=== PATIENT | male | born 1995 | race Caucasian/White ===

== ENCOUNTER 2020-01-04 15:19 | Outpatient (CLI) | payer OTHER, SELFPAY ==
--- NOTE | ~2020-01-04 | MR_ITS ---
EXAMINATION: MR IAC wo/w con EXAM DATE: 01/04/2020 17:42 INDICATION: H91.8X1 Other specified hearing loss, right ear TECHNIQUE: Multi-sequential, multiplanar MR images of the brain, brainstem, internal auditory canals were obtained without contrast. Whole brain sagittal T1, axial diffusion, gradient echo (T2*), T1, T 2, FLAIR sequences obtained. High resolution coronal 3-D FIESTA, coronal T1 FSE, axial T1 FSPGR of t he internal auditory canals. Patient was then injected with 15 cc Multihance contrast intravenously. Postcontrast axial and coronal T1 weighted whole brain, axial and coronal high resolution T1 IAC seq uences obtained. There is no prior study for comparison. FINDINGS: No evidence of mastoid or middle ear opacification. The 7th/8th cranial nerve complexes a re symmetric, normal in course and caliber. No cerebellopontine angle masses. Posterior fossa unrem arkable. There are no areas of restricted diffusion to suggest acute infarction. There is no acute hemorrhage seen on the T2*, a hemosiderin sensitive sequence. No intraparenchymal brain mass. The ventricles a re normal in size. There are no extra-axial collections. Flow voids are seen in the cerebral arteri es on the T2-weighted sequences consistent with their expected patency. The orbits are unremarkable. Soft tissue is unremarkable. There are no areas of abnormal enhancement on the postcontrast image s. There is nearly opacified left sphenoid sinus from mucoperiosteal thickening. Right maxillary sinu s moderate-sized mucous retention cyst. IMPRESSION: 1. Mucoperiosteal thickening. 2. Unremarkable cerebellopontine angles, brain. Reviewed, dictated and finalized at location A.
[2020-01-04 16:49] LABS: Estimated Glomerular Filt Rate > 60
== END 2020-01-04 15:20 | disposition home or self-care (01) ==
PROVIDERS: Visit Provider Otolaryngology
DX: H91.8X1 Other specified hearing loss, right ear (principal)
CPT/HCPCS: 70553; A9577

== ENCOUNTER 2020-04-07 20:58 | Emergency (ER) | payer OTHER, SELFPAY ==
--- NOTE | ~2020-04-07 | CT_ITS ---
EXAMINATION: CTA chest abdomen pelvis DATE: 04/07/2020 23:34 INDICATION: Stabbing and migrating chest pain TECHNIQUE: Computed tomographic angiography (CTA) of the chest, abdomen, and pelvis was performed wit h 100 mL Omnipque-350 intravenous contrast. Maximum intensity projection 3D-reconstructions of the ao rta and other arteries were constructed by the technologist on a separate workstation. The dose-lengt h product (DLP) was 578.88 mGy-cm. Automated exposure control and iterative reconstruction technique were employed. COMPARISON: None. FINDINGS: CHEST CTA: The thoracic aorta is normal without aneurysm or dissection. Although not timed for evaluation of the pulmonary arteries, no pulmonary embolism is identified. No pathologically enlarged thoracic lymph n odes are identified. The heart size is normal. The lungs are free of acute opacities. There is no ple ural effusion or pneumothorax. ABDOMEN AND PELVIS CTA: The abdominal aorta is normal without evidence of aneurysm or dissection. The celiac axis, superior m esenteric artery, and inferior mesenteric artery are normal. There are three right the and one left r enal arteries. The pelvic vessels are unremarkable. The liver, spleen, pancreas, gallbladder, and adr enal glands are normal. The kidneys are unremarkable. No pathologically enlarged abdominal or pelvic lymph nodes are identified. There is no free intraperitoneal gas or evidence of bowel obstruction. IMPRESSION: 1. Normal aorta without aneurysm or dissection. No CT correlate for the patient's symptoms. Reviewed, dictated and finalized at location A. AP MAN IMPRESSION: 1. Normal aorta without aneurysm or dissection. No CT correlate for the patient 's symptoms.
--- NOTE | ~2020-04-07 | XR_ITS ---
EXAMINATION: XR chest 2V DATE: 04/07/2020 21:30 INDICATION: Midsternal and right-sided chest pain TECHNIQUE: PA and lateral views of the chest are obtained. COMPARISON: 01/06/2019 FINDINGS: The lungs are free of acute opacities. There is no pleural effusion or pneumothorax. The ca rdiomediastinal silhouette is normal. The visualized bones and soft tissues are unremarkable. IMPRESSION: 1. No acute cardiopulmonary abnormality. Reviewed, dictated and finalized at location A. DER & CEO
--- NOTE | 2020-04-07 21:02 | ECG_ITS ---
Measurements Intervals [place] Rate: 152 P: 69 W[place]: 116 QRS: 72 QRSD: 82 T: 62 QT: 252 QTc: 401 Interpretive Statements SINUS TACHYCARDIA NONSPECIFIC T-WAVE ABNORMALITY- INFERIOR LEADS ABNORMAL ECG Electronically Signed On 04-08-2020 7:10:59 COMPLEX MANAGER by Jose Kaiser D.O.
[2020-04-07 21:07] VITALS: BP 134/86; PULSE 150; RESP 18; TEMP 36.7; O2SAT 100
--- NOTE | 2020-04-07 21:41 | ED.CHESTPAIN ---
HPI - Chest Pain General Chief Complaint: Chest Pain Stated Complaint: CHEST PAIN X1HR Time Seen by Provider: 04/07/20 21:15 Source: patient Mode of arrival: ambulatory Limitations: no limitations History of Present Illness HPI narrative: This patient is a 24 year old male who presents for evaluation of chest pain. He states starting 1 hours ago he was laying down when he developed sharp stabbing pain . His pain was lacerated right sternal and they cross over to left. He states pain is constant. HE denies associated cough, shortness of breath, fever or chills. HE denies vomiting or diarrhea. He reports chronic left knee pain that he is being evaluated for. He reports history of POTS but he states he was cleared from the diagnosis 1 year ago. He states he does not take any medications. Related Data Home Medications Medication Instructions Recorded Confirmed buspirone 10 mg tablet 10 mg PO BID 12/14/19 escitalopram oxalate 10 mg tablet 10 mg PO DAILY 12/14/19 escitalopram oxalate 5 mg tablet 5 mg PO DAILY 12/14/19 lamotrigine 25 mg tablet 25 mg PO DAILY tablet 12/14/19 propranolol 10 mg tablet 10 mg PO Q12H 12/14/19 Allergies Allergy/AdvReac Type Severity Reaction Status Date / Time metoprolol Allergy Unknown Unknown Verified 12/21/19 09:28 No Known Allergies Allergy Uncoded 12/21/19 09:28 Review of Systems Review of Systems: Narrative: CONSTITUTIONAL: Denies fever, chills, or sweats. EYES: Denies visual changes, redness, or discharge. ENT: Denies rhinorrhea, congestion, sore throat, or otalgia. CARDIOVASCULAR: , or edema. RESPIRATORY: Denies cough or dyspnea. GASTROINTESTINAL: Denies abdominal pain, nausea, vomiting, or diarrhea. GENITOURINARY: Denies dysuria or hematuria. SKIN: Denies rash or itching. MUSCULOSKELETAL: Denies back pain, joint pain, or myalgia. NEUROLOGIC: Denies headache, numbness, or weakness. PSYCHIATRIC: Denies anxiety or depression. All systems reviewed & are unremarkable except as noted in HPI and below Constitutional: Constitutional: Denies body ache(s) and Denies chills PMFSH Past Medical History Medical History (Updated 04/08/20 @ 01:54 by Emma Hatfield MD) Allergic rhinitis POTS (postural orthostatic tachycardia syndrome) Surgical History Surgical History (Updated 04/08/20 @ 01:49 by Emma Hatfield MD) No pertinent past surgical history Social History Social History (System 12/21/19 @ 09:28 by Thi Ibrahim) Smoking status: Never smoker Gender identity (if verbalized by the patient): Male Exam Narrative: Exam Narrative: GENERAL: Well-appearing, well-nourished, and in no acute distress. HEAD: Normocephalic, atraumatic EYES: PERRLA and EOMI, conjunctiva clear without discharge THROAT:Mucous membranes moist, Oropharynx normal without erythema, exudate, peritonsillar swelling or fluctuance NECK: Supple, without lymphadenopathy or mass RESPIRATORY: No respiratory distress, Airway patent, Respirations non-labored, Clear to auscultation without rales, rhonchi or wheeze HEART: tachycardic rate and regular rhythm. No murmur heard. Normal peripheral pulses. ABDOMEN: Soft, nontender, nondistended, normal active bowel sounds. No masses. No rebound or guarding, No organomegaly. EXTREMITIES: No edema, normal strength with full range of motion. SKIN: Warm, dry, normal color without rash NEURO: Alert and oriented x3. CN 2-12 grossly intact. No focal deficits. PSYCH: Normal mood and affect. Course Reevaluation(s) Reevaluation #1: PAtient presented with atypical chest pain. Her reports his pain has improved. His heart rate has decreased to 90 with BP 109/67 . I discussed labs are unremarkable. He will follow up with PCP regarding his tachycardia. Date: 04/08/20 Time: 01:50 Vital Signs Vital signs: Vital Signs Temperature 98.1 F 04/07/20 21:07 Pulse Rate 150 H 04/07/20 21:07 Respiratory Rate 18 04/07/20 21:07 Blood Pressure 134/8
[2020-04-07] MEDS: ASPIRIN 81 MG CHEWABLE TABLET 324 MG PO (21:42)
[2020-04-07 21:55] LABS: Basophils Percent Auto 0.3 % (0.2-1.2); Eosinophils Absolute Auto 0.1 K/mm3 (0-0.3); Eosinophils Percent Auto 0.9 % (0-4.4); Hematocrit 47.7 % (42.0-52.0); Hemoglobin 16.8 g/dL (14.0-18.0); Immature Granulocyte Absolute 0.02 K/mm3 (0.00-0.031); Immature Granulocyte Percent A 0.2 % (0-0.5); Lymphocytes Absolute Auto 2.32 K/mm3 (0.9-3.2); Lymphocytes Percent Auto 25.6 % (18.3-44.2); Mean Corpuscular HGB Conc 35.2 g/dl (32-36); Mean Corpuscular Hemoglobin 31.3 pg (26-34); Mean Corpuscular Volume 88.8 fl (80-100); Mean Platelet Volume 9.8 fl (7.4-10.4); Monocytes Absolute Auto 0.7 K/mm3 (0.1-0.6); Monocytes Percent Auto 7.9 % (2.6-8.5); Neutrophils Absolute Auto 5.9 K/mm3 (1.3-6.7); Neutrophils Percent Auto 65.1 % (45.5-73.1); Platelet Count Result 247 k/mm3 (150-375); Red Blood Count 5.37 M/mm3 (4.6-6.20); Red Cell Distribution Width 11.9 % (11.5-14.5); White Blood Count 9.1 K/mm3 (4.5-10.0)
[2020-04-07 22:12] LABS: Anion Gap 11 mmol/L (8-16); Blood Urea Nitrogen 15 mg/dL (9-20); Calcium 9.1 mg/dL (8.4-10.2); Carbon Dioxide 25 mmol/L (22-30); Chloride 105 mmol/L (98-107); Estimated CRCL calculation 111 ml/min; Estimated Glomerular Filt Rate > 60; Glucose 107 mg/dL (75-110); Potassium 3.6 mmol/L (3.4-5.0); Sodium 141 mmol/L (137-145)
[2020-04-07 22:23] LABS: Troponin I < 0.012 ng/mL (0.000-0.034)
[2020-04-07 22:45] LABS: INR 0.9; Prothrombin Time 12.8 Seconds (11.1-14.7)
[2020-04-07 22:46] LABS: Partial Thromboplastin Time 26.5 SECONDS (22.3-36.8)
[2020-04-07 22:52] LABS: D Dimer 0.27 ug/mL (<0.48)
[2020-04-07] MEDS: SODIUM CHLORIDE 0.9% IV 1,000 ML 999 ML IV CONT (22:53)
--- NOTE | 2020-04-07 22:59 | ECG_ITS ---
Measurements Intervals [place] Rate: 109 P: 64 DE: 152 QRS: 55 QRSD: 77 T: 10 QT: 304 QTc: 409 Interpretive Statements SINUS TACHYCARDIA NONSPECIFIC T-WAVE ABNORMALITY- INFERIOR LEADS ABNORMAL ECG Electronically Signed On 04-08-2020 7:11:25 CD REACTOR OPERATOR by Jose Kaiser D.O.
--- NOTE | 2020-04-07 23:06 | PC.NURSE ---
2300- Pt c/o severe pain to left upper chest 10/25. Described as throbbing. Does not radiate. Dr. Hatfield made aware. Order received for repeat EKG. VS 122/82 HR 110 Resp 16 SPO2 97.
--- NOTE | 2020-04-07 23:16 | PC.NURSE ---
1391- Report given to Carlos A WHITEHEAD
[2020-04-07 23:17] VITALS: PULSE 127
--- NOTE | 2020-04-07 23:24 | PC.NURSE ---
Report received from CHARLEY Mejia. Pt to CT via stretcher.
[2020-04-07 23:37] VITALS: BP 137/92; PULSE 115; O2SAT 100
[2020-04-07 23:46] VITALS: BP 125/87; PULSE 106; O2SAT 100
[2020-04-08] VITALS (9 sets, daily range): BP systolic 109–126; BP diastolic 70–86; PULSE 87–114; RESP 12; O2SAT 98–100
[2020-04-08] MEDS: LACTATED RINGERS 1,000 ML 999 ML IV CONT (00:25)
[2020-04-08] MEDS: KETOROLAC 30 MG/ML VIAL (*BKC) IV PUSH (00:25)
[2020-04-08 00:43] LABS: Troponin I < 0.012 ng/mL (0.000-0.034)
--- NOTE | 2020-04-08 00:55 | PC.NURSE ---
Pt denies any change in pain after the toradol.
== END 2020-04-08 02:05 | disposition home or self-care (01) ==
PROVIDERS: Emergency Medicine; Emergency Provider General Practice; PCP Registered Nurse
DX: R07.89 Other chest pain (principal); R00.0 Tachycardia, unspecified; R94.31 Abnormal electrocardiogram [ECG] [EKG]
CPT/HCPCS: 36415; 71046; 71275; 74174; 80048; 84484; 85025; 85380; 85610; 85730; 93005; 96361; 96374; 99284; A9270; J1885; J7030; J7120; Q9967

== ENCOUNTER 2020-05-26 15:13 | Emergency (ER) | payer OTHER, SELFPAY ==
[2020-05-26] VITALS (22 sets, daily range): BP systolic 123–147; BP diastolic 83–100; PULSE 80–134; RESP 12–25; TEMP 37.1–37.3; O2SAT 96–100
--- NOTE | ~2020-05-26 | XR_ITS ---
EXAMINATION: XR chest 1V portable DATE: 05/26/2020 15:54 INDICATION: Right chest pain. Shortness of breath. Cough. TECHNIQUE: A single frontal view of the chest was obtained. COMPARISON: Chest 2 views 04/07/2020, chest CT 04/07/2020 FINDINGS: The chest demonstrates clear lungs without pneumonia, pleural effusion, or pneumothorax. Th e heart size is normal. IMPRESSION: 1. No acute cardiopulmonary disease. Reviewed, dictated and finalized at location A. ERY CLERK MARKING
--- NOTE | 2020-05-26 15:41 | ECG_ITS ---
Measurements Intervals [place] Rate: 134 P: 59 DE: 141 QRS: 28 QRSD: 78 T: 61 QT: 331 QTc: 495 Interpretive Statements SINUS TACHYCARDIA BORDERLINE R WAVE PROGRESSION, ANTERIOR LEADS BORDERLINE T WAVE ABNORMALITY- INFERIOR LEADS ABNORMAL ECG Electronically Signed On 05-26-2020 15:49:22 ASSEMBLER PLASTIC BOAT by Jose Kaiser D.O.
--- NOTE | 2020-05-26 15:42 | ED.ARRPALP ---
HPI - Arrhythmia/Palpitations General Chief Complaint: Arrhythmia/Palpitations Stated Complaint: chest pain, palpitations Time Seen by Provider: 05/26/20 15:17 Source: patient Mode of arrival: ambulatory Limitations: no limitations History of Present Illness HPI narrative: This is a 24 year old male with history of anxiety who presents for evaluation of shortness of breath, dizziness and palpitations. He has a history of POTS. He reports over the past 2 days he has had dizziness, shortness of breath, and heart racing. He also reports a throbbing frontal headache. He also reports nausea. He reports a chronic cough. He denies abdominal pain, vomiting or fever . MD complaint: palpitations Related Data Home Medications Medication Instructions Recorded Confirmed buspirone 10 mg tablet 10 mg PO BID 12/14/19 escitalopram oxalate 10 mg tablet 10 mg PO DAILY 12/14/19 lamotrigine 25 mg tablet 50 mg PO DAILY tablet 12/14/19 Allergies Allergy/AdvReac Type Severity Reaction Status Date / Time metoprolol Allergy Unknown Unknown Verified 05/26/20 15:30 Review of Systems Review of Systems: All systems reviewed & are unremarkable except as noted in HPI and below Constitutional: Constitutional: Denies chills and Denies fever(s) Eyes: Eyes: Denies change in vision ENT: Reports dizziness and Denies sore throat Cardiovascular: Cardiovascular: Reports chest pain and Reports rapid heart rate Respiratory: Respiratory: Reports cough and Reports dyspnea Gastrointestinal: Gastrointestinal: Denies abdominal pain, Reports nausea and Denies vomiting PMFSH Past Medical History Medical History (Updated 05/26/20 @ 18:55 by Emma Hatfield MD) Allergic rhinitis POTS (postural orthostatic tachycardia syndrome) Surgical History Surgical History (Updated 04/08/20 @ 01:49 by Emma Hatfield MD) No pertinent past surgical history Social History Social History (System 12/21/19 @ 09:28 by Thi Ibrahim) Smoking status: Never smoker Gender identity (if verbalized by the patient): Male Exam Const: General: no acute distress and alert Orientation/consciousness: patient oriented x3 HENMT: Ears: TM's normal bilaterally Face and sinus: normal facial exam, sinuses nontender and face symmetric Mouth: Yes Normal oral and palatal mucosa present, Yes lip normal, Yes tongue normal, Yes oropharynx normal and Yes moist mucous membranes Throat: posterior oropharynx normal, tonsils normal and uvula midline Eyes: Pupils: Equal, round and reactive pupils present EOM: EOMs intact bilaterally Chest: Chest palpation & inspection: normal inspection of the chest Resp: Effort & Inspection: normal respiratory effort and no retractions Auscultation: clear to auscultation bilaterally Cardio: Rate: tachycardic Rhythm: regular rhythm Heart sounds: no murmurs GI: GI Palp: Yes Soft to palpation, No Tenderness to palpation present (GI) and No Guarding due to palpation present (GI) Auscultation: normal bowel sounds Skin: General skin exam: normal color Rashes: no rashes Neuro: General: patient oriented x3, moves all extremities, no meningeal signs, no focal motor deficits and CN's II-XI intact bilaterally Cranial nerves: Yes CN's II-XII intact bilaterally Speech: normal speech Gait exam (Neuro): Normal gait present Motor exam (neuro): 5/5 motor strength present throughout Coordination: [id number] test normal Extrem: General: normal to inspection Psych: Mental Status: mental status grossly normal Affect: normal affect Course Reevaluation(s) Reevaluation #1: PAtient reports he is having right chest pain and sob. I discussed with patient labs are unremarkable and I will order some anxiolytics and toradol. Patient was seen for something similar 2 months ago in which he had an extensive evaluation which include a normal CT scan. He has had unremarkable d dimer, troponin, bnp. Date: 05/26/20 Time: 17:
[2020-05-26] MEDS: LACTATED RINGERS 1,000 ML 999 ML IV CONT (16:00)
[2020-05-26] MEDS: ONDANSETRON INJ 4 MG/2 ML VIAL IV PUSH (16:00)
[2020-05-26 16:10] LABS: Basophils Percent Auto 0.2 % (0.2-1.2); Hemoglobin 17.1 g/dL (14.0-18.0); Immature Granulocyte Absolute 0.02 K/mm3 (0.00-0.031); Immature Granulocyte Percent A 0.2 % (0-0.5); Lymphocytes Absolute Auto 0.81 K/mm3 (0.9-3.2); Lymphocytes Percent Auto 9.3 % (18.3-44.2); Mean Corpuscular HGB Conc 34.2 g/dl (32-36); Mean Corpuscular Hemoglobin 31.2 pg (26-34); Mean Corpuscular Volume 91.2 fl (80-100); Mean Platelet Volume 10.3 fl (7.4-10.4); Monocytes Absolute Auto 0.4 K/mm3 (0.1-0.6); Monocytes Percent Auto 4.4 % (2.6-8.5); Neutrophils Absolute Auto 7.5 K/mm3 (1.3-6.7); Neutrophils Percent Auto 85.9 % (45.5-73.1); Platelet Count Result 280 k/mm3 (150-375); Red Blood Count 5.48 M/mm3 (4.6-6.20); Red Cell Distribution Width 12.1 % (11.5-14.5); White Blood Count 8.7 K/mm3 (4.5-10.0)
[2020-05-26 16:11] LABS: Add Urine Microscopic? NO; Appearance Urine Clear (Clear); Bilirubin Urine Negative (Negative); Blood Urine Negative (Negative); Color Urine Straw (Yellow); Glucose Urine UA Negative (Negative); Ketones Urine Negative (Negative); Leukocyte Esterase Ur Negative LEU/UL (Negative); Nitrate Urine Negative (Negative); Protein Urine Negative (Negative); Specific Grav Ur 1.016 (1.001-1.035); Urobilinogen Urine Negative mg/dL (<2.0)
[2020-05-26 16:19] LABS: INR 0.9; Prothrombin Time 12.6 Seconds (11.1-14.7)
[2020-05-26 16:20] LABS: Partial Thromboplastin Time 25.2 SECONDS (22.3-36.8)
[2020-05-26 16:27] LABS: Amphetamine Screen Urine Negative (Negative); Barbiturate Screen Urine Negative (Negative); Benzodiazepines Screen Urine Negative (Negative); Cannabinoid Screen Urine Negative (Negative); Cocaine Screen Urine Negative (Negative); Methadone Screen Urine Negative (Negative); Opiate Screen Urine Negative (Negative); Phencyclidine Screen Urine Negative (Negative)
[2020-05-26 16:27] LABS: Lactic Acid Reflex 1.4 mmol/L (0.7-2.1)
[2020-05-26 16:30] LABS: Alanine Aminotransferase 21 U/L (4-50); Albumin Level 4.7 g/dL (3.5-5.1); Alkaline Phosphatase 57 U/L (38-126); Anion Gap 10 mmol/L (8-16); Aspartate Amino Transferase 27 U/L (17-59); Bilirubin,Total 0.4 mg/dL (0.2-1.3); Blood Urea Nitrogen 18 mg/dL (9-20); Calcium 9.6 mg/dL (8.4-10.2); Carbon Dioxide 30 mmol/L (22-30); Chloride 103 mmol/L (98-107); Estimated CRCL calculation 90 ml/min; Estimated Glomerular Filt Rate > 60; Glucose 109 mg/dL (75-110); Magnesium 1.7 mg/dL (1.6-2.3); Potassium 3.6 mmol/L (3.4-5.0); Sodium 143 mmol/L (137-145)
[2020-05-26 16:31] LABS: D Dimer 0.27 ug/mL (<0.48)
[2020-05-26 16:41] LABS: NT Pro B Type Natriuretic Pept 26 PG/ML (5-100); Troponin I < 0.012 ng/mL (0.000-0.034)
== END 2020-05-26 18:04 | disposition left against medical advice (07) ==
PROVIDERS: Emergency Provider General Practice; PCP Registered Nurse
DX: R00.0 Tachycardia, unspecified (principal); R07.89 Other chest pain; F41.9 Anxiety disorder, unspecified
CPT/HCPCS: 36415; 71045; 80053; 80307; 81003; 83605; 83735; 83880; 84484; 85025; 85380; 85610; 85730; 93005; 96365; 96375; 99284; J0131; J2405; J7120

== ENCOUNTER 2020-07-26 15:07 | Emergency (ER) | payer OTHER, SELFPAY ==
[2020-07-26 15:23] VITALS: BP 137/79; PULSE 100; RESP 16; TEMP 37.4; O2SAT 100
--- NOTE | 2020-07-26 15:47 | ED.EAR ---
HPI - Ear Problem General Chief complaint: Ear Stated complaint: right ear pain Time Seen by Provider: 07/26/20 15:48 Source: patient, RN notes reviewed and old records reviewed History of Present Illness HPI Narrative: 24 year old male who presents to [facility] care with complaints of right ear pain with crackling sound for the past 2 days. He reports no known fevers or drainage from his ears, states some sinus drainage and post nasal drainage. Patient states no cough, sinus pressure or headache pain. Patient states history of past ear tubes as child and history of asthma allergy related. Patient states he is drinking and eating well with no nausea or vomiting or any dyspnea at rest or with exertion, with SAO2 100% at rest. MD Complaint: ear pain Location: right ear Discharge from ear: Reports no Associated symptoms ear: rhinorrhea and other (crackling sound right ear) Treatment prior to arrival: none and other (antihistamine) Related Data Home Medications Medication Instructions Recorded Confirmed buspirone 10 mg tablet 10 mg PO BID 12/14/19 escitalopram oxalate 10 mg tablet 10 mg PO DAILY 12/14/19 lamotrigine 25 mg tablet 50 mg PO DAILY tablet 12/14/19 Allergies Allergy/AdvReac Type Severity Reaction Status Date / Time metoprolol Allergy Unknown Unknown Verified 05/26/20 15:30 Review of Systems Review of Systems: Narrative: CONSTITUTIONAL: Denies fever, chills, or sweats. EYES: Denies visual changes, redness, or discharge. ENT: Positive rhinorrhea, congestion, sore throat, Right otalgia. CARDIOVASCULAR: Denies chest pain, palpitations, or edema. RESPIRATORY: Denies cough or dyspnea. GASTROINTESTINAL: Denies abdominal pain, nausea, vomiting, or diarrhea. GENITOURINARY: Denies dysuria or hematuria. SKIN: Denies rash or itching. MUSCULOSKELETAL: Denies back pain, joint pain, or myalgia. NEUROLOGIC: Denies headache, numbness, or weakness. PSYCHIATRIC: Positive history of anxiety or depression. All systems reviewed & are unremarkable except as noted in HPI and below PMFSH Past Medical History Medical History (Updated 07/26/20 @ 17:24 by Jessica Betancourt NP) Allergic rhinitis Anxiety and depression POTS (postural orthostatic tachycardia syndrome) Surgical History Surgical History (Updated 07/26/20 @ 17:23 by Jessica Betancourt NP) History of placement of ear tubes Family History Family History Other No significant family history Social History Social History (Updated 07/26/20 @ 17:25 by Jessica Betancourt NP) Smoking status: Never smoker Tobacco type: e-cigarettes/vaping Alcohol intake: current Alcohol use details: social rare Substance use: never Living arrangements: with family Gender identity (if verbalized by the patient): Male Comments At time of signature, agree with nursing past medical, surgical, social and family history. There is no relevant family history pertinent to the presenting complaint Exam Narrative: Exam Narrative: GENERAL: Well-appearing, well-nourished, and in no acute distress. HEAD: Normocephalic, atraumatic. EYES: PERRLA and EOMI. ENT: Nares re with clear rhinorrhea no epistaxis. Mucous membranes moist.TM normal left ear with light reflex intact, Right ear with fluid noted on eardrum with TM dull in appearance. throat red with no lesions, exudates or enlarged tonsils, post nasal drainage present NECK: Supple. no lymphadenopathy CHEST: Clear to auscultation. No respiratory distress.SAO2 100% on room air, no tachypnea HEART: Regular rate and rhythm. No murmur heard. Normal peripheral pulses. ABDOMEN: Soft, nontender, nondistended, normal active bowel sounds. EXTREMITIES: Normal range of motion. No edema. SKIN: Warm, dry, no rash. NEURO: No focal deficits. Alert and oriented x3. Course Vital Signs Vital signs: Vital Signs Temperature 37.4 C 07/26/20 15:23 Pulse Rate 100 07/26/20 15:23 Resp
== END 2020-07-26 16:05 | disposition home or self-care (01) ==
PROVIDERS: Emergency Provider Registered Nurse; PCP Registered Nurse
DX: H92.01 Otalgia, right ear (principal); F17.200 Nicotine dependence, unspecified, uncomplicated; F41.9 Anxiety disorder, unspecified; F32.9 Major depressive disorder, single episode, unspecified
CPT/HCPCS: 99211; G0463

== ENCOUNTER 2020-07-30 00:50 | Emergency (ER) | payer OTHER, SELFPAY ==
--- NOTE | 2020-07-30 00:56 | PC.NURSE ---
Pt. states he does not want to be tx. by Dr. Hatfield so he is just going to leave. Pt. NAD and pink warm and dry
== END 2020-07-30 00:56 | disposition left against medical advice (07) ==
PROVIDERS: PCP Registered Nurse
DX: Z53.21 Procedure and treatment not carried out due to patient leaving prior to being seen by health care provider (principal)
CPT/HCPCS: 99199

== ENCOUNTER → 2021-12-21 13:59 | Outpatient (CLI) | payer BC, SELFPAY ==
--- NOTE | ~2021-12-21 | XR_ITS ---
XR knee RT min 4V 12/21/2021 14:36 INDICATION: Right knee pain PROCEDURE: 4 views right knee COMPARISON: No prior studies for comparison. FINDINGS: Fracture, dislocation or subluxation is not identified. No significant joint effusion. The soft tissues appear within normal limits. No foreign bodies are identified. IMPRESSION: 1: NO ACUTE BONE OR JOINT ABNORMALITY IDENTIFIED. Reviewed, dictated and finalized at location A.
== END ==
PROVIDERS: PCP Emergency Medicine; Visit Provider Emergency Medicine
DX: M25.561 Pain in right knee (principal)
CPT/HCPCS: 73564

== ENCOUNTER 2022-04-09 14:33 | Outpatient (CLI) | payer BC, SELFPAY ==
--- NOTE | ~2022-04-09 | US_ITS ---
EXAMINATION: US venous doppler LE DATE: 04/09/2022 15:17 INDICATION: M79.604 - Pain in right leg . TECHNIQUE: Grayscale images without and with compression and Doppler images of the right lower extrem ity veins were obtained. COMPARISON: None FINDINGS: The right common femoral vein, profunda (deep) femoral vein, femoral vein, popliteal vein, peroneal v ein, posterior tibial veins, gastrocnemius vein, and greater saphenous vein are patent. IMPRESSION: 1. Patent right lower extremity veins. No evidence of deep venous thrombosis. Reviewed, dictated and finalized at location K. R GRADER ROUGH GRADE
== END 2022-04-09 14:34 | disposition home or self-care (01) ==
PROVIDERS: PCP Emergency Medicine; Visit Provider Emergency Medicine
DX: M79.604 Pain in right leg (principal)
CPT/HCPCS: 93971

== ENCOUNTER 2022-05-03 08:27 | Outpatient (CLI) | payer BC, SELFPAY ==
[2022-05-03 20:10] LABS: Alanine Aminotransferase 26 U/L (6-50); Albumin Level 5.1 g/dL (3.5-5.1); Alkaline Phosphatase 73 U/L (38-126); Anion Gap 7 mmol/L (8-16); Aspartate Amino Transferase 36 U/L (17-59); Bilirubin,Total 0.4 mg/dL (0.2-1.3); Blood Urea Nitrogen 14 mg/dL (9-20); Calcium 9.4 mg/dL (8.4-10.2); Carbon Dioxide 31 mmol/L (22-30); Chloride 98 mmol/L (98-107); Creatine Kinase 148 U/L (55-170); Estimated Glomerular Filt Rate > 60; Glucose 100 mg/dL (65-110); Sodium 136 mmol/L (137-145)
[2022-05-03 20:32] LABS: Basophils Percent Auto 0.5 % (0.2-1.2); Eosinophils Absolute Auto 0.1 K/mm3 (0-0.3); Eosinophils Percent Auto 1.4 % (0-4.4); Hematocrit 48.1 % (42.0-52.0); Hemoglobin 16.3 g/dL (14.0-18.0); Immature Granulocyte Absolute 0.02 K/mm3 (0.00-0.031); Immature Granulocyte Percent A 0.3 % (0-0.5); Lymphocytes Absolute Auto 2.63 K/mm3 (0.9-3.2); Lymphocytes Percent Auto 34.4 % (18.3-44.2); Mean Corpuscular HGB Conc 33.9 g/dl (32-36); Mean Corpuscular Hemoglobin 30.9 pg (26-34); Mean Corpuscular Volume 91.3 fl (80-100); Mean Platelet Volume 11.1 fl (7.4-10.4); Monocytes Absolute Auto 0.9 K/mm3 (0.1-0.6); Monocytes Percent Auto 11.5 % (2.6-8.5); Neutrophils Percent Auto 51.9 % (45.5-73.1); Platelet Count Result 240 k/mm3 (150-375); Red Blood Count 5.27 M/mm3 (4.6-6.20); Red Cell Distribution Width 12.1 % (11.5-14.5); White Blood Count 7.7 K/mm3 (4.5-10.0)
[2022-05-03 21:06] LABS: Free T4 Free Thyroxine Reflex 1.19 ng/dL (0.78-2.19)
[2022-05-03 22:13] LABS: Total Triiodothyronine (T3) 2.05 NG/ML (0.97-1.69)
[2022-05-10 11:23] LABS: Testosterone Total 629 ng/dL (250-1100)
== END 2022-05-03 08:28 | disposition home or self-care (01) ==
LOC: ANHGOSHLAB 08:28
PROVIDERS: PCP Emergency Medicine; Visit Provider Emergency Medicine
DX: R68.82 Decreased libido (principal); M79.10 Myalgia, unspecified site; M79.604 Pain in right leg; R00.0 Tachycardia, unspecified
CPT/HCPCS: 36415; 80053; 82550; 84403; 84439; 84443; 84480; 85025

== ENCOUNTER 2022-05-07 14:51 | Outpatient (CLI) | payer BC, SELFPAY ==
[2022-05-07 19:46] LABS: Creatine Kinase 88 U/L (55-170)
[2022-05-07 20:13] LABS: Total Triiodothyronine (T3) 1.18 NG/ML (0.97-1.69)
== END 2022-05-07 14:52 | disposition home or self-care (01) ==
LOC: ANHGOSHLAB 14:52
PROVIDERS: PCP Emergency Medicine; Visit Provider Emergency Medicine
DX: M79.10 Myalgia, unspecified site (principal); R94.6 Abnormal results of thyroid function studies
CPT/HCPCS: 36415; 82550; 84439; 84443; 84480

== ENCOUNTER 2022-05-21 13:41 | Outpatient (CLI) | payer BC, SELFPAY ==
--- NOTE | 2022-05-21 13:45 | ECG_ITS ---
Measurements Intervals [place] Rate: 88 P: 28 DE: 147 QRS: 38 QRSD: 86 T: 15 QT: 331 QTc: 401 Interpretive Statements SINUS RHYTHM DELAYED PRECORDIAL R/S TRANSITION BORDERLINE ECG COMPARED TO ECG 05/26/2020 15:20:26 SINUS RHYTHM NOW PRESENT Electronically Signed On 05-21-2022 13:59:28 ELECTRIFIER OPERATOR by Jose Kaiser D.O.
--- NOTE | 2022-05-21 13:45 | ECHO_ITS ---
Patient Info Name: Danish Reyes Age: 26 years : 1995 Gender: Male Ht: 66 in Wt: 168 lbs BSA: 1.90 m2 HR: 85 bpm BP: 126 / 87 mmHg Technical Quality: Good Exam Date: 05/21/2022 1:50 PM Exam Location: [facility] Patient Status: Outpatient Admit Date: 05/21/2022 Staff Ordering Physician: Raoul Burch MD Plant Controls Specialist: Yessi Maria RDCS Attending Provider: Raoul Burch MD Referring Physician: Kiersten CHILDERS; Exam Type: CA echo doppler color flow Study Info Indications R00.0 - Tachycardia, unspecified Complete two-dimensional, color flow and Doppler transthoracic echocardiogram is performed. Summary 1. Complete two-dimensional, color flow and Doppler transthoracic echocardiogram is performed. 2. Left ventricular chamber dimension is normal. 3. Left ventricular systolic function is normal, estimated at 60-65%. 4. The left ventricular diastolic function is normal. 5. E/e' 5 is not elevated. 6. Global longitudinal strain is abnormal at -14.9%. 7. No pulmonary hypertension, estimated pulmonary arterial systolic pressure is 24 mmHg. 8. Dilated inferior vena cava with >50% collapse upon inspiration consistent with elevated right atrial pressure, 10 mmHg. Left Ventricle E/e' 5 is not elevated. Global longitudinal strain is abnormal at -14.9%. Left ventricular chamber dimension is normal. Left ventricular systolic function is normal, estimated at 60-65%. The left ventricular diastolic function is normal. Right Ventricle Right ventricular chamber dimension is normal. Right ventricular systolic function is normal. Left Atria Left atrial chamber dimension is normal. Right Atria Right atrial chamber dimension is normal. Aortic Valve The aortic valve is trileaflet. There is no aortic valve stenosis. There is no aortic valve regurgitation. Pulmonic Valve There is no pulmonic regurgitation. Mitral Valve There is no mitral valve stenosis. There is no mitral valve regurgitation. Tricuspid Valve There is no tricuspid valve regurgitation. No pulmonary hypertension, estimated pulmonary arterial systolic pressure is 24 mmHg. Pericardium/Pleural There is no pericardial effusion. Inferior Vena Cava Dilated inferior vena cava with >50% collapse upon inspiration consistent with elevated right atrial pressure, 10 mmHg. Aorta The aortic root size at the sinus of Valsalva is normal. Left Ventricular Outflow Tract Name Value Normal LVOT 2D LVOT Diameter 2.0 cm LVOT Doppler LVOT Peak Gradient 3 mmHg LVOT Mean Gradient 2 mmHg LVOT VTI 16 cm LVOT VTI/AV VTI Ratio 1.0 LVOT Stroke Volume 50 ml LVOT CO 4.2 l/min LVOT CI 2.2 l/min/m2 Pulmonic Valve Name Value Normal RVOT Doppler
== END 2022-05-21 13:42 | disposition home or self-care (01) ==
LOC: ANHCARD 13:41
PROVIDERS: PCP Emergency Medicine; Visit Provider Emergency Medicine
DX: R00.0 Tachycardia, unspecified (principal); R94.31 Abnormal electrocardiogram [ECG] [EKG]
CPT/HCPCS: 93005; 93306